=== PATIENT | male | born 1955 | race American Indian/Alaskan Native ===

== ENCOUNTER 2021-11-30 07:06 | Day surgery (SDC) | payer OTHER ==
[2021-11-29 09:51] LABS: Hematocrit 41.3 % (35.5-45.6); Hemoglobin 13.4 gm/dl (11.8-15.2); Mean Corpuscular HGB Conc 32 % (32-34); Mean Corpuscular Volume 96 fl (84-94); Platelet Count 241 K/mm3 (140-440); Red Cell Distribution Width 14.1 % (13.2-15.2)
[2021-11-29 10:06] LABS: Alanine Aminotransferase 9 units/L (7-56); Albumin 4.2 g/dL (3.9-5); BUN/Creatinine Ratio 11; Blood Urea Nitrogen 11 mg/dL (9-20); Hemolysis Index 4
--- NOTE | 2021-11-29 12:29 | Anesthesia Consultation ---
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 +THC) Hx Cancer: No
[~2021-11-30 07:06] MED LIST: LACTATED RINGERS 1,000 ML IV SCH; MIDAZOLAM 2 MG/2 ML INJ IV NR
[2021-11-30] MEDS ORDERED: BACTERIOSTATIC SODIUM CHLORIDE 0.9% 30 ML VIAL INFILTRATI ONE (07:53)
[2021-11-30] MEDS ORDERED: HYDROmorphone 1 MG/1 ML INJ ONE (08:26)
[2021-11-30] MEDS ORDERED: LIDOCAINE MPF (2%) 20 MG/1 ML VIAL 5 ML ONE (08:26)
[2021-11-30] MEDS ORDERED: propofoL 200 MG/20 ML VIAL IV ONE (08:26)
[2021-11-30] MEDS ORDERED: ceFAZolin/Water 2 GM/20 ML 2 GM/20 ML SYRINGE IV ONE (08:42)
[2021-11-30] MEDS ORDERED: ceFAZolin/STERILE WATER 2 GM/20 ML SYRINGE IV NR (09:05)
[2021-11-30] MEDS ORDERED: ONDANSETRON 4 MG/2 ML INJ ONE (10:07)
[2021-11-30] MEDS ORDERED: HYDROcodone/ACETAMINOPHEN 5-325 MG TAB PO PRN (11:30)
--- NOTE | 2021-11-30 11:47 | Operative Report ---
DATE OF SURGERY: 11/30/2021 PREOPERATIVE DIAGNOSES: 1. Significant urinary symptoms despite medical therapy. 2. BPH. POSTOPERATIVE DIAGNOSES: 1. Significant urinary symptoms despite medical therapy. 2. BPH. OPERATIVE PROCEDURE: TURP/TUVP. ATTENDING: Mike Landis MD MODERATE NEEDS TEACHER: None. ANESTHESIA: General. ESTIMATED BLOOD LOSS: 20 mL. DRAINS: A 22-Algerian 3-way Almonte catheter. SPECIMENS: TUR chips. COMPLICATIONS: None. INDICATIONS FOR PROCEDURE: The patient is a 66-year-old man with significant lower urinary tract symptoms despite medical therapy. Local cystoscopy revealed a large obstructing prostate. After discussion of risks, benefits and alternatives, the patient wished to proceed with outlet reduction in the form of a TURP. DESCRIPTION OF PROCEDURE IN DETAIL: After induction of suitable anesthesia and proper positioning and preparation in the dorsal lithotomy position, a resectoscope was used to enter the bladder under direct visualization. There were no urethral strictures. There were no bladder or urethral mucosal lesions. The patient had a large, obstructing prostate, particularly at the median lobe. After identifying the ureteral orifices, the button electrode was used to incise the prostate and bladder neck at the 5 and 7 o'clock positions. This incision was carried down to the circular fibers of the bladder neck and extended proximal to the verumontanum. These incisions helped to outline the adenomatous median lobe. Once these incisions were complete, the median lobe was then resected with the loop electrocautery down to the level of the bladder neck. The patient's outlet was anatomically open after resection. Some adenomatous lateral tissue was then resected, specifically on the patient's left lateral lobe. The remainder of procedure was spent obtaining and ensuring hemostasis. This part of the procedure was very diligently followed. There was excellent hemostasis upon completion. TUR chips were removed from the bladder. Once I was satisfied with hemostasis, the cystoscope was removed and a Almonte catheter was placed. He was attached to continuous bladder irrigation. This will continue in the recovery and will be stopped prior to the patient being discharged home. The patient was then awakened from anesthesia and transferred to the recovery room in stable condition. He tolerated the procedure well. He will return to the office in approximately 5 days for catheter removal. TID: [id number] RECEIPT: [id number] JANEY/JACKY
[2021-11-30 12:43] VITALS: BP 123/85
--- NOTE | 2021-11-30 15:15 | Post Anesthesia Evaluation ---
- Post Anesthesia Evaluation Patient Participated: Yes Airway Patent: Yes Stable Respiratory Function: Yes Nausea/Vomiting: Yes Temp > 96.8F: Yes Pain Manageable: Yes Adequeate Hydration: Yes Anesthesia Complications: No
--- NOTE | 2021-11-30 15:15 | Anesthesia Day of Surgery ---
Anesthesia Day of Surgery - Day of Surgery Patient Examined: Yes Patient H&P Reviewed: Yes Patient is NPO: Yes
== END 2021-11-30 12:10 | disposition home or self-care (01) ==
LOC: OR 07:06
PROVIDERS: ATTEND Urology
DX: N40.0 Benign prostatic hyperplasia without lower urinary tract symptoms (principal); E78.00 Pure hypercholesterolemia, unspecified; I10 Essential (primary) hypertension; J44.9 Chronic obstructive pulmonary disease, unspecified; F17.210 Nicotine dependence, cigarettes, uncomplicated; Z20.822 Contact with and (suspected) exposure to COVID-19; Z79.899 Other long term (current) drug therapy; Z98.890 Other specified postprocedural states; Z79.82 Long term (current) use of aspirin; Z86.73 Personal history of transient ischemic attack (TIA), and cerebral infarction without residual deficits
CPT/HCPCS: 36415; 52601; 80053; 85027; 86850; 86900; 86901; 88305; J0690; J1170; J2250; J2405; J2704; J3490; J7120; U0003